=== PATIENT | female | born 1960 | race Hispanic/Latino ===

== ENCOUNTER → 2018-11-23 | Outpatient (CLI) | payer OTHER | END | disposition home or self-care (01) | LOC: RAH 08:39 | PROVIDERS: ATTEND Family Medicine | DX: Z12.31 Encounter for screening mammogram for malignant neoplasm of breast (principal) | CPT/HCPCS: 77067 ==

== ENCOUNTER 2018-12-09 05:39 | Day surgery (SDC) | payer OTHER ==
[~2018-12-09] VITALS: Ht 160 cm; Wt 101.2 kg
[~2018-12-09 05:39] MED LIST: SODIUM CHLORIDE 0.9% 1000ML 1,000 ML IV ONE
[2018-12-09 06:45] VITALS: BP 129/75
[2018-12-09 07:31] VITALS: BP 106/60
[2018-12-09 07:35] VITALS: BP 113/59
[2018-12-09 07:40] VITALS: BP 116/62
[2018-12-09 07:56] VITALS: BP 116/48
== END 2018-12-09 08:02 | disposition home or self-care (01) ==
LOC: ENDO 05:39 → DAH 05:39 → ENDO 08:02
PROVIDERS: ATTEND Internal Medicine
DX: Z12.11 Encounter for screening for malignant neoplasm of colon (principal); D12.2 Benign neoplasm of ascending colon; K63.5 Polyp of colon; K29.50 Unspecified chronic gastritis without bleeding; K57.30 Diverticulosis of large intestine without perforation or abscess without bleeding; K64.1 Second degree hemorrhoids; K22.8 Other specified diseases of esophagus; K31.89 Other diseases of stomach and duodenum; I10 Essential (primary) hypertension; E78.5 Hyperlipidemia, unspecified; E11.52 Type 2 diabetes mellitus with diabetic peripheral angiopathy with gangrene; E66.01 Morbid (severe) obesity due to excess calories; G40.501 Epileptic seizures related to external causes, not intractable, with status epilepticus; K21.9 Gastro-esophageal reflux disease without esophagitis; M19.90 Unspecified osteoarthritis, unspecified site; M81.0 Age-related osteoporosis without current pathological fracture; Z86.010 Personal history of colon polyps; Z88.8 Allergy status to other drugs, medicaments and biological substances; Z88.1 Allergy status to other antibiotic agents; Z98.890 Other specified postprocedural states; Z86.73 Personal history of transient ischemic attack (TIA), and cerebral infarction without residual deficits; Z79.899 Other long term (current) drug therapy; Z68.39 Body mass index [BMI] 39.0-39.9, adult
CPT/HCPCS: 43239; 45380; 45385; 82948; 88305; 93005; A4606; J7030

== ENCOUNTER 2018-12-16 21:42 | Emergency (ER) | payer OTHER ==
[2018-12-16 22:13] LABS: BASOPHILS % (AUTO) 0.4 % (0.0-5.0); EOSINOPHILS % (AUTO) 2.9 % (0.0-8.0); HEMATOCRIT 36.6 % (36-48); LYMPHOCYTES % (AUTO) 27.9 % (21.0-51.0); MEAN CORPUSCULAR HEMOGLOBIN 32.5 pg (27.0-33.0); MEAN CORPUSCULAR HGB CONC 34.9 g/dL (32.0-36.0); MEAN CORPUSCULAR VOLUME 93.1 fL (79-99); MONOCYTES % (AUTO) 7.7 % (3.0-13.0); NEUTROPHILS % (AUTO) 61.1 % (40.0-77.0); NUCLEATED RED BLOOD CELLS 0.1 % (0.0-0.19); PLATELET COUNT (AUTO) 90 K/uL (130-400); RED BLOOD CELL COUNT(AUTO) 3.93 MIL/uL (4.00-5.50); RED CELL DISTRIBUTION WIDTH 12.7 % (11.0-15.5); WHITE BLOOD COUNT (AUTO) 5.7 K/uL (4.8-10.8)
[2018-12-16 22:15] LABS: CREATININE 1.2 mg/dL (0.5-1.5); POTASSIUM 4.8 mmol/L (3.5-5.1)
[2018-12-16 22:21] LABS: ALBUMIN 3.7 g/dL (3.5-5.0); BILIRUBIN,TOTAL 0.3 mg/dL (0.2-1.0); TOTAL PROTEIN, SERUM 6.8 g/dL (6.0-8.3)
[2018-12-16 22:28] LABS: PLATELET MORPHOLOGY COMMENT DECREASED
[2018-12-17 00:14] LABS: APPEARANCE,URINE Clear (CLEAR); BILIRUBIN,URINE Negative (NEGATIVE); COLOR,URINE Yellow (YELLOW); GLUCOSE, URINE (UA) Negative (NEGATIVE); KETONES,URINE Negative (NEGATIVE); LEUKOCYTE ESTERASE ,URINE Trace (NEGATIVE); NITRATE,URINE Negative (NEGATIVE); OCCULT BLOOD,URINE Negative (NEGATIVE); PH,URINE 5.5 (5.0-8.0); PROTEIN,URINE Trace mg/dL (NEGATIVE)
[2018-12-17] MEDS ORDERED: LIDOCAINE 2%-EPI 1:200,000 20 ML VIAL IJ ONE (00:26)
[2018-12-17 00:33] LABS: BACTERIA,URINE None Seen /HPF (None Seen); RBC,URINE None Seen /HPF (0-1); SQUAMOUS EPITHELIAL CELL,UR Few /HPF (0-2); WBC,URINE 0-1 /HPF (0-1)
== END 2018-12-17 04:33 | disposition home or self-care (01) ==
LOC: EDH 21:42
DX: S01.81XA Laceration without foreign body of other part of head, initial encounter (principal); R53.1 Weakness; R26.89 Other abnormalities of gait and mobility; I10 Essential (primary) hypertension; E78.00 Pure hypercholesterolemia, unspecified; E11.9 Type 2 diabetes mellitus without complications; Z86.73 Personal history of transient ischemic attack (TIA), and cerebral infarction without residual deficits; Z88.8 Allergy status to other drugs, medicaments and biological substances; Z88.6 Allergy status to analgesic agent; Z88.1 Allergy status to other antibiotic agents; Z91.041 Radiographic dye allergy status; Z79.899 Other long term (current) drug therapy; W18.39XA Other fall on same level, initial encounter; Y93.01 Activity, walking, marching and hiking; Y92.89 Other specified places as the place of occurrence of the external cause; Y99.8 Other external cause status
CPT/HCPCS: 12011; 36415; 70450; 72125; 80053; 81001; 85025; 93005; 99285; J3490